=== PATIENT | female | born 1935 | race Caucasian/White ===

== ENCOUNTER 2022-06-22 12:45 | Outpatient (RCR) | payer MEDICARE, BC, SELFPAY | END 2022-08-03 11:05 | disposition home or self-care (01) | PROVIDERS: PCP Family Medicine; Visit Provider Family Medicine | DX: H81.10 Benign paroxysmal vertigo, unspecified ear (principal); Z51.89 Encounter for other specified aftercare | CPT/HCPCS: 97110; 97140; 97164; 97763 ==